=== PATIENT | female | born 2000 | race Caucasian/White ===

== ENCOUNTER → 2018-08-15 | Emergency (ER) | payer OTHER ==
[~2018-08-15] VITALS: Ht 165.1 cm; Wt 74.8 kg
== END | disposition home or self-care (01) ==
LOC: ER 12:43
DX: S30.0XXA Contusion of lower back and pelvis, initial encounter (principal); M54.5 Low back pain; W18.09XA Striking against other object with subsequent fall, initial encounter; Y93.89 Activity, other specified; Y92.89 Other specified places as the place of occurrence of the external cause; Y99.8 Other external cause status

== ENCOUNTER 2024-03-05 23:34 | Emergency (ER) | payer OTHER ==
[~2024-03-05] VITALS: Ht 165.1 cm; Wt 74.8 kg
== END 2024-03-06 02:17 | disposition home or self-care (01) ==
LOC: ER
DX: F41.9 Anxiety disorder, unspecified (principal)